=== PATIENT | male | born 1985 | race Caucasian/White ===

== ENCOUNTER 2019-12-26 09:04 | Emergency (ER) | payer OTHER ==
[~2019-12-26] VITALS: Ht 175.3 cm; Wt 106.6 kg
[2019-12-26 09:16] VITALS: BP_SYST 159
--- NOTE | 2019-12-26 09:20 | NUR ---
PATIENT PRESENTS TO THE ER WITH THREE DAY HX OF SORE THROAT; NO TRAUMA, NO OTHER REMARKABLE S/S
--- NOTE | 2019-12-26 09:40 | NUR ---
PT CAME TO ER FOR SORE THROAT X3 DAYS. APPEARS COMFORTABLE IN [facility], NO DISTRESS, VSS.
--- NOTE | 2019-12-26 09:45 | NUR ---
ER at bedside examining patient.
--- NOTE | 2019-12-26 10:05 | NUR ---
Patient given written and verbal discharge instructions and verbalizes understanding. ER MD discussed with patient the results and treatment provided. Patient in stable condition. ID arm band removed. Patient educated on pain management and to follow up with PMD. Pain Scale 0. Opportunity for questions provided and answered. Medication side effect fact sheet provided.
[2019-12-26 10:17] VITALS: BP_SYST 141
== END 2019-12-26 10:05 | disposition home or self-care (01) ==
LOC: SED 09:04
DX: J02.9 Acute pharyngitis, unspecified (principal)
CPT/HCPCS: 99283

== ENCOUNTER 2020-12-14 05:28 | Emergency (ER) | payer MEDICAID, OTHER ==
[~2020-12-14] VITALS: Ht 172.7 cm; Wt 108.9 kg
[2020-12-14 05:35] VITALS: BP_SYST 166
[2020-12-14] MEDS ORDERED: KETOROLAC TROMETHAMINE 30 MG VIAL IM ONE (07:15)
[2020-12-14] MEDS ORDERED: LIDOCAINE 1% 10 MG/ML, 20 ML MDV INJ ONE (08:00)
[2020-12-14 08:45] VITALS: BP_SYST 159
== END 2020-12-14 08:45 | disposition home or self-care (01) ==
LOC: SED 05:28
DX: N47.2 Paraphimosis (principal)
CPT/HCPCS: 54450; 96372; 99284; J1885; J2001

== ENCOUNTER 2021-05-31 15:30 | Emergency (ER) | payer MEDICAID ==
[~2021-05-31] VITALS: Ht 175.3 cm; Wt 108.9 kg
[2021-05-31 15:42] VITALS: BP_SYST 136
[2021-05-31] MEDS ORDERED: LIDO1ADH5 TP (16:03)
[2021-05-31] MEDS ORDERED: IBUP-1969 PO (16:03)
[2021-05-31] MEDS ORDERED: CYCL-10 PO (16:03)
[2021-05-31 16:08] VITALS: BP_SYST 136
== END 2021-05-31 16:08 | disposition home or self-care (01) ==
LOC: SED 15:30
DX: S39.012A Strain of muscle, fascia and tendon of lower back, initial encounter (principal); Z79.899 Other long term (current) drug therapy; X50.0XXA Overexertion from strenuous movement or load, initial encounter; Y93.89 Activity, other specified; Y92.89 Other specified places as the place of occurrence of the external cause; Y99.8 Other external cause status
CPT/HCPCS: 99283